=== PATIENT | female | born 1950 | race Caucasian/White ===

== ENCOUNTER 2016-11-10 10:42 | Inpatient (IN) | payer OTHER ==
[~2016-11-10] VITALS: Ht 165.1 cm; Wt 130.5 kg
[2016-11-13] MEDS ORDERED: NAPR500T PO (08:30)
[2016-11-13] MEDS ORDERED: OMEP20TA PO (08:30)
[2016-11-13] MEDS ORDERED: LOSA50TA PO (08:30)
[2016-11-13] MEDS ORDERED: LEXA20TA PO (08:30)
[2016-11-13] MEDS ORDERED: SIMV20TA PO (08:30)
[2016-11-13] MEDS ORDERED: LEVO112T29 PO (08:30)
[2016-11-13] MEDS ORDERED: METF500T PO (08:30)
[2016-11-13] MEDS ORDERED: EXCETAB PO (08:32)
--- NOTE | 2016-11-17 09:57 | MH ---
cc: Jeanne GOODMAN M.D. DATE OF ADMISSION: 11/20/2016 ADMITTING DIAGNOSIS Osteoarthritic degeneration left knee, now being admitted for left total knee arthroplasty. HISTORY OF PRESENT ILLNESS This pleasant 66-year-old female is being admitted today for left total knee arthroplasty due to severe painful osteoarthritic degeneration, left knee. PAST MEDICAL HISTORY 1. Diabetes. 2. Hypertension. 3. Neck and back pain. 4. Thyroid problems. MEDICATIONS Current medications include: 1. Levoxyl. 2. Lexapro. 3. Losartan. 4. Metformin. 5. Simvastatin. 6. Omeprazole. PAST SURGICAL HISTORY 1. Right total knee arthroplasty, 2010. 2. Cholecystectomy. REVIEW OF SYSTEMS Noncontributory. FAMILY HISTORY Noncontributory. SOCIAL HISTORY She does not smoke and does not drink. ALLERGIES She has no known allergies. PHYSICAL EXAMINATION VITAL SIGNS: The patient has a BMI of 43.5. Blood pressure 128/72, pulse 79 and regular, respirations 16, temperature 97.6, pulse oximetry 97% on room air. HEENT: Eyes PERRLA, EOMI. Ears, nose and mouth clear. NECK: Supple. LUNGS: Clear. HEART: Regular rate. ABDOMEN: Soft. Positive bowel sounds. Nontender. EXTREMITIES: The left knee is tender with crepitance on range of motion. Neurovascularly intact to her toes. IMPRESSION The impression at this time is severe painful osteoarthritic degeneration, left knee. PLAN Admission for left total knee arthroplasty today. The patient was given prescriptions for postoperative pain and anticoagulation control in the office. She understands to use Hibiclens scrub and Bactroban preoperatively. She plans on going home with home health care after surgery. MD LUDWIN Swift/ADAM /9:41 AM /9:45 AM
[2016-11-20] MEDS ORDERED: POVIDONE IODINE 5% (ANTISEPSIS KIT) 4 APPLICATIONS EACH NARE PRN (08:00)
[2016-11-20] MEDS ORDERED: ceFAZolin 2 GM PREMIX 50 ML IV SCH (08:00)
[2016-11-20] MEDS: CHLORHEXIDINE GLUCONATE 4% SOLN 120 ML BTL TOPICAL SCH (08:00)
[2016-11-20] MEDS ORDERED: LACTATED RINGER'S 1000 ML IV PRN (08:00)
[2016-11-20] MEDS ORDERED: METOPROLOL TARTRATE 25 MG TAB PO PRN (08:00)
[2016-11-20] MEDS ORDERED: EXPAREL PERI-ARTICULAR INJECTION (TOTAL VOL. 120 ML) P-ARTICULR SCH ×2 (08:00)
[2016-11-20] MEDS ORDERED: VANCOMYCIN 1000 MG/NS 250 ML (for <70 kg) IV SCH ×2 (08:00)
[2016-11-20] MEDS ORDERED: TRANEXAMIC ACID IV SCH ×3 (08:00→13:28)
[2016-11-20] MEDS ORDERED: SODIUM CHLORID 0.9% 500 ML IV PRN (08:00)
[2016-11-20] MEDS ORDERED: CHLORHEXIDINE GLUCONATE 2 % 1 PACK (2 CLOTHS) TOPICAL PRN (08:00)
[2016-11-20] MEDS ORDERED: SODIUM CHLORIDE 0.9% IV SCH ×3 (08:00→13:28)
[2016-11-20] MEDS ORDERED: INSULIN HUMAN REGULAR 1,000 UNITS/10 ML VIAL SQ PRN (08:00)
[2016-11-20 08:16] VITALS: BP 173/85; PULSE 77; RESP 20; TEMP 98.2; O2SAT 97
[2016-11-20] MEDS ORDERED: BUPIVACAINE LIPOSO PF 1.3% INJ 20 ML, BUPIVACAINE PF 0.25% INJ 20 ML in SODIUM CHLORIDE... P-ARTICULR SCH (09:15)
[2016-11-20] MEDS ORDERED: FAMOTIDINE 20 MG/2 ML VIAL ONE ×2 (09:33→10:11)
[2016-11-20] MEDS ORDERED: APREPITANT 40 MG CAP ONE (09:33)
[2016-11-20] MEDS ORDERED: DEXAMETHASONE SOD PHOS 4 MG/ML VIAL ONE (09:51)
[2016-11-20] MEDS ORDERED: MIDAZOLAM HCL 2 MG/2 ML VIAL ONE ×2 (09:51→13:26)
[2016-11-20] MEDS ORDERED: ACETAMINOPHEN 1000 MG/100 ML VIAL IV ONE (10:11)
--- NOTE | 2016-11-20 10:27 | HHI.FF ---
Face to Face Verification Diagnosis: (1) Status post total left knee replacement Physical Therapy Gait training Knee: Total knee, Protocol: Left, Full weight bearing Canvas Knee Splint: When in bed & 2 pillows btw thighs Nursing RN: 3 days/week x 2 weeks Nursing: Dayanna teaching, Dressing changes Dressing Changes: Daily dressing change, 4x4s, Gauze, Paper tape I have seen patient Liasha Kendrick on 11/20/16. My clinical findings support the need for the requested home health care services because: Limited ability to care for self High risk of falls I certify that my clinical findings support that this patient is homebound because: Unsteady gait/balance Jeanne Tracy MD Nov 20, 2016 10:27
[2016-11-20] MEDS ORDERED: CPMMACHINE (10:28)
[2016-11-20] MEDS ORDERED: MISC-163 (10:28)
[2016-11-20] MEDS ORDERED: WALKER WHEELS/F1 MIS (10:29)
[2016-11-20] MEDS ORDERED: Post-op Orders (for Pharmacy) MISC XX ONE (10:30)
[2016-11-20] MEDS ORDERED: TEMAZEPAM 15 MG CAP PO PRN (10:30)
[2016-11-20] MEDS ORDERED: NALOXONE HCL 0.4 MG/ML AMP IV PRN (10:30)
[2016-11-20] MEDS ORDERED: SODIUM CHLORIDE 0.9% FLUSH 5 ML FLUSH IVF PRN (10:30)
[2016-11-20] MEDS ORDERED: MORPHINE SULFATE 30 MG/30 ML PCA IV SCH (10:30)
[2016-11-20] MEDS ORDERED: diphenhydrAMINE HCL 50 MG/ML VIAL IV PRN (10:30)
[2016-11-20] MEDS ORDERED: ONDANSETRON HCL 4 MG/2 ML VIAL IV PUSH ONE (12:00)
[2016-11-20] MEDS ORDERED: PROPOFOL 200 MG/20 ML AMP IV ONE (12:00)
[2016-11-20] MEDS ORDERED: ePHEDrine/NS 25 MG/5 ML SYR IV ONE (12:00)
[2016-11-20] MEDS ORDERED: NEOSTIGMINE 3 MG/3 ML SYR IV ONE (12:00)
[2016-11-20] MEDS ORDERED: LACTATED RINGER'S 1000 ML INJ 1,000 ML IV ONE (12:00)
[2016-11-20] MEDS ORDERED: fentaNYL CITRATE 250 MCG/5 ML AMP ONE (13:27)
[2016-11-20] MEDS ORDERED: *morphine SULFATE 8 MG/ML PERIprocedure ONLY ONE ×2 (13:40→14:13)
[2016-11-20] MEDS: LACTATED RINGER'S 1000 ML INJ 1,000 ML IV SCH ×2 (13:45→22:53)
--- NOTE | 2016-11-20 14:30 | RADRPT ---
EXAM DATE/TIME: 11/20/2016 13:54 [facility] COMPARISON: No previous studies available for comparison. INDICATIONS : Post op left knee replacement MEDICAL HISTORY : None. SURGICAL HISTORY : bilateral knees ENCOUNTER: Initial ACUITY: 1 day PAIN SCORE: Non-responsive. LOCATION: Left knee FINDINGS: The patient is post left knee arthroplasty. Orthopedic hardware is in good position. CONCLUSION: 1. Arthroplasty hardware in good position. Armand Dickerson MD on November 20, 2016 at 14:28 Board Certified Radiologist. This report was verified electronically.
[2016-11-20 15:16] VITALS: BP 115/54; PULSE 60; RESP 18; TEMP 97.2; O2SAT 94
[2016-11-20] MEDS: PCA - TOTAL MG MORPHINE DELIVERED PER SHIFT SCH ×2 (15:48→21:36)
--- NOTE | 2016-11-20 15:51 | PD.CONS ---
HPI Service [facility] Hospitalists Consult Requested By Primary Care Physician Jamaal Castro MD Diagnoses: History of Present Illness Pt is 66 yo admitted for left tka. currently seen in room postop. no cp or sob. some nausea. present. says she is planning to d/c home after admission as she did before. Review of Systems Other left knee pain Past Family Social History Past Medical History right tka cholecystectomy htn hypothyroidism gerd dm 2 depression. hyperlipidemia Reported Medications Reported Meds & Active Scripts Active Reported Excedrin Migraine (Bbgyhlu-Ukfrczmbitiio-Dhhizevl) 250-250-65 Mg Tab 2 Tab PO PRN Naproxen 500 Mg Tab 500 Mg PO DAILY PRN Simvastatin 20 Mg Tab 20 Mg PO DAILY Omeprazole 20 Mg Tab 20 Mg PO DAILY Metformin (Metformin HCl) 500 Mg Tab 500 Mg PO DAILY With a meal Losartan (Losartan Potassium) 50 Mg Tab 50 Mg PO DAILY Lexapro (Escitalopram Oxalate) 20 Mg Tab 20 Mg PO DAILY Levoxyl (Levothyroxine Sodium) 112 Mcg Tab 112 Mcg PO DAILY Allergies: Coded Allergies: No Known Allergies (Verified , 11/20/16) Family History nc Social History no etoh/tob Physical Exam Vital Signs heent neg heart reg lung cta abd s/nt ext no pitting. Vital Signs Date Time Temp Pulse Resp B/P Pulse Ox O2 Delivery O2 Flow Rate FiO2 11/20/16 15:48 17 11/20/16 14:18 15 11/20/16 13:51 15 11/20/16 13:46 15 11/20/16 13:45 15 11/20/16 13:30 68 13 136/60 96 Nasal Cannula 3 11/20/16 13:15 97.4 68 10 156/65 95 Nasal Cannula 3 11/20/16 08:16 98.2 77 20 173/85 97 Laboratory Laboratory Tests Test 11/20/16 08:53 Blood Type O NEGATIVE Antibody Screen NEGATIVE Assessment and Plan Problem List: (1) Status post total left knee replacement Status: Acute Plan: Pt admitted with left tka dvt prophylaxis pain control PT eval inc spirometer plan for hhc/pt resume home bp/dm meds. (2) Diabetes Status: Chronic Plan: ssi home meds (3) Hypertension Status: Chronic Plan: cont home meds (4) Hypothyroid Status: Chronic Plan: home meds Elmer Pierson MD Nov 20, 2016 15:51
[2016-11-20 16:00] VITALS: BP 120/60; PULSE 60; RESP 18; TEMP 97.6; O2SAT 94
[2016-11-20] MEDS ORDERED: DEXTROSE 50% IN WATER 50 ML VIAL(D50) IV PRN (16:00)
[2016-11-20] MEDS ORDERED: GLUCAGON 1 MG/ML VIAL OTHER PRN (16:00)
[2016-11-20 16:16] VITALS: BP 115/54; PULSE 60; RESP 18; TEMP 97.2; O2SAT 94
[2016-11-20] MEDS: INSULIN ASPART SUPPLEMENTAL SCALE SQ SCH ×2 (16:24→21:00)
[2016-11-20 18:40] VITALS: O2SAT 93
[2016-11-20] MEDS ORDERED: CAFFEINE PO PRN (19:30)
[2016-11-20] MEDS ORDERED: ACETAMINOPHEN PO PRN (19:30)
[2016-11-20] MEDS ORDERED: ASPIRIN PO PRN (19:30)
[2016-11-20 20:25] VITALS: BP 134/64; PULSE 71; RESP 18; TEMP 98; O2SAT 97
[2016-11-20] MEDS: SODIUM CHLORIDE 0.9% FLUSH 5 ML FLUSH IVF SCH (21:00)
[2016-11-21] VITALS (8 sets, daily range): BP systolic 105–128; BP diastolic 53–60; PULSE 69–92; RESP 16–19; TEMP 96.4–98.3; O2SAT 94–98
[2016-11-21] MEDS: ONDANSETRON HCL 4 MG/2 ML VIAL IVP PRN ×3 (01:34→23:54)
[2016-11-21] MEDS: PCA - TOTAL MG MORPHINE DELIVERED PER SHIFT SCH (05:48)
[2016-11-21] MEDS: LEVOTHYROXINE SODIUM 112 MCG TAB PO SCH (05:48)
[2016-11-21] MEDS: INSULIN ASPART SUPPLEMENTAL SCALE SQ SCH ×4 (05:52→20:39)
[2016-11-21] MEDS: CHLORHEXIDINE GLUCONATE 4% SOLN 120 ML BTL TOPICAL SCH (07:34)
[2016-11-21] MEDS: SODIUM CHLORIDE 0.9% FLUSH 5 ML FLUSH IVF SCH ×2 (07:34→20:39)
--- NOTE | 2016-11-21 08:07 | PD.ORT.PN ---
Subjective Subjective Remarks pt comfortable today. No complaints. Objective Vitals Vital Signs Date Time Temp Pulse Resp B/P Pulse Ox O2 Delivery O2 Flow Rate FiO2 11/21/16 05:48 19 11/21/16 04:35 97.8 74 17 117/59 98 11/21/16 00:35 96.4 69 17 125/56 98 11/20/16 21:36 19 11/20/16 20:25 98.0 71 18 134/64 97 11/20/16 18:40 93 Nasal Cannula 3.00 11/20/16 16:00 97.6 60 18 120/60 94 11/20/16 15:48 17 11/20/16 15:16 97.2 60 18 115/54 94 11/20/16 15:00 97.5 68 16 115/63 96 Nasal Cannula 2 11/20/16 14:45 67 15 112/60 95 Nasal Cannula 2 11/20/16 14:30 66 15 113/62 95 Nasal Cannula 2 11/20/16 14:18 15 11/20/16 14:15 67 15 118/62 94 Nasal Cannula 2 11/20/16 14:00 66 14 120/68 98 Nasal Cannula 3 11/20/16 13:51 15 11/20/16 13:46 15 11/20/16 13:45 65 14 128/69 97 Nasal Cannula 3 11/20/16 13:45 15 11/20/16 13:30 68 13 136/60 96 Nasal Cannula 3 11/20/16 13:15 97.4 68 10 156/65 95 Nasal Cannula 3 11/20/16 08:16 98.2 77 20 173/85 97 I/O 11/20/16 11/20/16 11/20/16 11/21/16 11/21/16 11/21/16 07:00 15:00 23:00 07:00 15:00 23:00 Intake Total 1600 ml 125 ml 120 ml Output Total 200 ml 550 ml Balance 1400 ml 125 ml -430 ml Intake Oral 125 ml 120 ml IV Total 100 ml Other 1500 ml Output Urine Total 550 ml Estimated Blood Loss 200 ml # Voids 0 0 # Bowel Movements 0 0 Imaging Last 24 hours Impressions Knee X-Ray 11/20/16 1023 Signed Impressions: Service Date/Time: Sunday, November 20, 2016 13:54 - CONCLUSION: 1. Arthroplasty hardware in good position. Armand Dickerson MD Objective Remarks Dressing dry and intact. Block still on. Assessment & Plan Ortho Post Op Day #: 1 Problem List: Assessment and Plan Daily wound care. PT, OOB, CPM, DC WELL TESTER today. Plan on home with HHC on POD #3 Jeanne Tracy MD Nov 21, 2016 08:07
[2016-11-21] MEDS: metFORMIN HCL 500 MG TAB PO SCH (08:12)
[2016-11-21] MEDS: PRAVASTATIN SOD 40 MG TAB PO SCH (08:13)
[2016-11-21] MEDS: ESCITALOPRAM OXALATE 20 MG TAB PO SCH (08:13)
[2016-11-21] MEDS: PANTOPRAZOLE SOD 20 MG DELAYED RELEASE TAB PO SCH (08:13)
[2016-11-21] MEDS: LOSARTAN 50 MG TAB PO SCH (08:13)
[2016-11-21 08:38] LABS: HEMATOCRIT 31.8 % (35.0-46.0)
[2016-11-21 08:48] LABS: REVIEW FLAG FINAL
[2016-11-21] MEDS: ACETAMINOPHEN/HYDROcodone 325 MG/7.5 MG TAB PO PRN ×4 (10:13→23:54)
[2016-11-21] MEDS: LACTATED RINGER'S 1000 ML INJ 1,000 ML IV SCH ×2 (11:23→23:53)
[2016-11-21] MEDS: ENOXAPARIN SODIUM 30 MG/0.3 ML SYRINGE SQ SCH ×2 (12:00→23:51)
[2016-11-21] MEDS: MULTIVITAMINS/MINERALS THERAPEUTIC TAB PO SCH (20:39)
[2016-11-21] MEDS: DOCUSATE SODIUM 100 MG CAP PO SCH (20:39)
[2016-11-22 00:20] VITALS: BP 120/56; PULSE 84; RESP 18; TEMP 98; O2SAT 98
[2016-11-22] MEDS: LEVOTHYROXINE SODIUM 112 MCG TAB PO SCH (06:04)
[2016-11-22] MEDS: ONDANSETRON HCL 4 MG/2 ML VIAL IVP PRN (06:04)
[2016-11-22] MEDS: INSULIN ASPART SUPPLEMENTAL SCALE SQ SCH ×4 (06:05→21:00)
[2016-11-22] MEDS: ACETAMINOPHEN/HYDROcodone 325 MG/7.5 MG TAB PO PRN (06:05)
[2016-11-22 07:09] LABS: HEMATOCRIT 29.8 % (35.0-46.0); REVIEW FLAG FINAL
[2016-11-22 08:00] VITALS: BP 125/55; PULSE 67; RESP 16; TEMP 97.4; O2SAT 99
[2016-11-22] MEDS: CHLORHEXIDINE GLUCONATE 4% SOLN 120 ML BTL TOPICAL SCH (08:00)
--- NOTE | 2016-11-22 08:05 | PD.ORT.PN ---
Subjective Subjective Remarks pt comfortable today but complaining of dizziness. Objective Vitals Vital Signs Date Time Temp Pulse Resp B/P Pulse Ox O2 Delivery O2 Flow Rate FiO2 11/22/16 00:20 98.0 84 18 120/56 98 11/21/16 20:00 97.4 92 19 128/60 94 11/21/16 16:35 94 Nasal Cannula 3.00 11/21/16 16:00 97.7 79 16 114/53 98 11/21/16 12:00 98.3 76 16 113/56 94 11/21/16 09:52 96 Nasal Cannula 3.00 I/O 11/21/16 11/21/16 11/21/16 11/22/16 11/22/16 11/22/16 07:00 15:00 23:00 07:00 15:00 23:00 Intake Total 120 ml 700 ml 480 ml 240 ml Output Total 550 ml 850 ml 450 ml 700 ml Balance -430 ml -150 ml 30 ml -460 ml Intake Oral 120 ml 600 ml 480 ml 240 ml IV Total 100 ml Output Urine Total 550 ml 850 ml 450 ml 700 ml # Bowel Movements 0 0 0 0 Result Diagram: 11/22/16 0609 Imaging Last 24 hours Impressions Knee X-Ray 11/20/16 1023 Signed Impressions: Service Date/Time: Sunday, November 20, 2016 13:54 - CONCLUSION: 1. Arthroplasty hardware in good position. Armand Dickerson MD Objective Remarks Dressing dry and intact. No calf tenderness. Assessment & Plan Ortho Post Op Day #: 2 Problem List: Assessment and Plan Daily wound care. PT, OOB, CPM. Plan on home with HHC on POD #3 Jeanne Tracy MD Nov 22, 2016 08:05
[2016-11-22] MEDS: DOCUSATE SODIUM 100 MG CAP PO SCH ×2 (08:45→20:35)
[2016-11-22] MEDS: LOSARTAN 50 MG TAB PO SCH (08:45)
[2016-11-22] MEDS: MULTIVITAMINS/MINERALS THERAPEUTIC TAB PO SCH ×2 (08:45→20:35)
[2016-11-22] MEDS: metFORMIN HCL 500 MG TAB PO SCH (08:45)
[2016-11-22] MEDS: PRAVASTATIN SOD 40 MG TAB PO SCH (08:45)
[2016-11-22] MEDS: PANTOPRAZOLE SOD 20 MG DELAYED RELEASE TAB PO SCH (08:45)
[2016-11-22] MEDS: ESCITALOPRAM OXALATE 20 MG TAB PO SCH (08:45)
[2016-11-22] MEDS: SODIUM CHLORIDE 0.9% FLUSH 5 ML FLUSH IVF SCH ×2 (08:46→20:35)
[2016-11-22] MEDS ORDERED: BACITRACIN OINT 0.9 GM PKT TOP PRN (10:15)
[2016-11-22 12:00] VITALS: BP 114/59; PULSE 69; RESP 16; TEMP 97.9; O2SAT 96
[2016-11-22] MEDS: ENOXAPARIN SODIUM 30 MG/0.3 ML SYRINGE SQ SCH (12:08)
[2016-11-22] MEDS: LACTATED RINGER'S 1000 ML INJ 1,000 ML IV SCH (12:23)
[2016-11-22 16:00] VITALS: BP 138/62; PULSE 82; RESP 16; TEMP 98.7; O2SAT 92
[2016-11-22] MEDS: ACETAMINOPHEN 325 MG TAB PO PRN (19:27)
[2016-11-22 20:10] VITALS: BP 159/68; PULSE 76; RESP 17; TEMP 97.7; O2SAT 92
[2016-11-23 00:05] VITALS: BP 146/67; PULSE 70; RESP 18; TEMP 96.9; O2SAT 93
[2016-11-23] MEDS: ENOXAPARIN SODIUM 30 MG/0.3 ML SYRINGE SQ SCH ×2 (00:20→10:55)
[2016-11-23] MEDS: LACTATED RINGER'S 1000 ML INJ 1,000 ML IV SCH ×2 (00:53→13:23)
[2016-11-23] MEDS ORDERED: MAGNESIUM HYDROXIDE SUSP 30 ML CUP PO PRN (04:15)
[2016-11-23] MEDS: LEVOTHYROXINE SODIUM 112 MCG TAB PO SCH (06:02)
[2016-11-23] MEDS: ACETAMINOPHEN 325 MG TAB PO PRN ×2 (06:02→12:49)
[2016-11-23] MEDS: INSULIN ASPART SUPPLEMENTAL SCALE SQ SCH ×2 (06:34→10:53)
[2016-11-23 07:56] VITALS: BP 143/62; PULSE 72; RESP 19; TEMP 98; O2SAT 97
[2016-11-23] MEDS: PRAVASTATIN SOD 40 MG TAB PO SCH (08:31)
[2016-11-23] MEDS: LOSARTAN 50 MG TAB PO SCH (08:31)
[2016-11-23] MEDS: metFORMIN HCL 500 MG TAB PO SCH (08:31)
[2016-11-23] MEDS: DOCUSATE SODIUM 100 MG CAP PO SCH (08:32)
[2016-11-23] MEDS: MULTIVITAMINS/MINERALS THERAPEUTIC TAB PO SCH (08:32)
[2016-11-23] MEDS: ESCITALOPRAM OXALATE 20 MG TAB PO SCH (08:32)
[2016-11-23] MEDS: PANTOPRAZOLE SOD 20 MG DELAYED RELEASE TAB PO SCH (08:32)
[2016-11-23] MEDS: SODIUM CHLORIDE 0.9% FLUSH 5 ML FLUSH IVF SCH (08:34)
--- NOTE | 2016-11-23 11:23 | MP ---
cc: Jeanne TRACY M.D. DATE OF SURGERY 11/20/2016 PREOPERATIVE DIAGNOSIS Severe osteoarthritic degeneration left knee with morbid obesity. POSTOPERATIVE DIAGNOSIS Severe osteoarthritic degeneration left knee with morbid obesity. SURGERY PERFORMED Left total knee arthroplasty using the Consensus protocol and cutting jigs sizes were 5 femur, 3 tibia and 2 patella with a 12 mm insert. No drain utilized and two batch of cobalt blue cement. SURGEON Dr. Tracy FISH RECEIVER AARON Neri ANESTHESIA General intubation and block PROCEDURE After successful induction of anesthesia, the patient is placed on the operating room table in the supine position. The knee is prepped and draped in the usual manner. A tourniquet is inflated at the upper thigh and set to 300 mmHg pressure after exsanguination of the lower extremity. A longitudinal incision is made extending from 3 inches proximal to the superior pole of the patella, across the patella in longitudinal fashion, and down past the insertion of the tibial tubercle into the proximal tibia. The incision is carried down through subcutaneous tissue along the medial aspect of the patella and retinaculum, down through the capsule to expose the knee joint. The patella and patellar tendon are freed up enough to allow the patella to be inverted and retracted off the lateral side of the knee joint. The knee joint is left exposed. Small osteophytes are removed. All soft tissue is removed to allow proper position of the femoral and tibial cutting jig guide. The first femoral jig is then inserted along the distal end of the femur after first measuring to decide whether this is a small, medium, or large component. The notch is then drilled and the tibial cutting guide inserted into the femoral cutting guide, along with the ankle brace to allow for proper measurement of the tibial cutting surface that needed to be resected. Pins are inserted into the tibial cutting jig and femoral cutting jig to hold them in place. An oscillating saw is then used to resect the surface of the tibia. The surface of the tibia is then completely removed using sharp and blunt dissection. The anterior and posterior cuts of the femur are then made as well using an oscillating saw through the cutting guide. All guides are then removed and the varus/valgus angulation cutting guide applied to the femur for proper measurement of the proper amount of valgus. The anterior cutting guide for the femur is then inserted at the anterior femoral cuts made. Next, the first block trial is inserted into the femur to allow for proper condyle drill holes to be made which are then made followed by removal of the bone between the condyles using an oscillating saw as well as the bone removed at the most posterior surface of the condyle. After this, this guide is removed and the chamfer cuts made using the chamfer cutting guide from both anterior and posterior. Next, the femoral trial is then inserted, the tibial surface reflected anterior to expose the tibial surface and a tibial stem guide is inserted after first measuring for a standard, standard plus, large, or large plus surface to be used. After the stem is impacted the trial tibial surface is applied followed by the trial meniscal components. After full range of motion is found with the appropriate length meniscal components varying the patella is prepared by resecting the posterior aspect of the patella using an oscillating saw, inserting a trial. The trial is then removed and the cruciate cutting guide applied using the bur to cut the cruciate cuts. After cruciate cuts are made all trials are removed. The wound is irrigated copiously with antibiotic solution and Water-Pik and the actual components inserted into place using Consensus protocol and cutting jigs sizes were 5 femur, 3 tibia and 2 patella with a 12 mm insert. No drains utilized and two batch of cobalt blue cement. After the cement has hardened and the components are found to have full range of motion with no instability, the tourniquet is deflated, no total tourniquet utilized except for cementing, total tourniquet time being 13 minutes at 300 mmHg pressure. The wound again is irrigated copiously with antibiotic solution, meticulous hemostasis achieved. The patient needed an extra 30 minutes of exposure time as she was morbidly obese and had extra layers of extra layers of lipomas material to cut through and the incision had to be larger to expose the wound which took extra time sewing with 2-0 and 3-0 Monocryl suture at the end of the case just to re-sew the incision line which was an extra 4 inches in length due to her morbid obesity status. The deep fascia approximated with #2 running quill, subcutaneous tissue with 2-0, 3-0 and 4-0 Monocryl sutures. Steri-Strips sterile dressing and a knee immobilizer. No drain utilized. Estimated blood loss 200 cc. Sponge suture counts correct. The patient of procedure well and left the operating in satisfactory condition. J. MD LUDWIN Busch/CATY /11:12 AM /11:09 AM
[2016-11-23 11:55] VITALS: BP 154/68; PULSE 78; RESP 19; TEMP 98.8; O2SAT 97
--- NOTE | 2016-11-23 14:44 | PD.ORT.PN ---
Subjective Subjective Remarks pt comfortable today. no complaints. Objective Vitals Vital Signs Date Time Temp Pulse Resp B/P Pulse Ox O2 Delivery O2 Flow Rate FiO2 11/23/16 11:55 98.8 78 19 154/68 97 11/23/16 07:56 98.0 72 19 143/62 97 11/23/16 00:05 96.9 70 18 146/67 93 11/22/16 20:10 97.7 76 17 159/68 92 11/22/16 16:00 98.7 82 16 138/62 92 I/O 11/22/16 11/22/16 11/22/16 11/23/16 11/23/16 11/23/16 07:00 15:00 23:00 07:00 15:00 23:00 Intake Total 480 ml 240 ml 240 ml Output Total 700 ml 100 ml Balance -220 ml 240 ml 240 ml -100 ml Intake Oral 480 ml 240 ml 240 ml Output Urine Total 700 ml 100 ml # Voids 0 3 3 # Bowel Movements 0 0 0 Result Diagram: 11/22/16 0609 Imaging Last 24 hours Impressions Knee X-Ray 11/20/16 1023 Signed Impressions: Service Date/Time: Sunday, November 20, 2016 13:54 - CONCLUSION: 1. Arthroplasty hardware in good position. Armand Dickerson MD Objective Remarks Dressing dry and intact. No calf tenderness. Assessment & Plan Ortho Post Op Day #: 3 Problem List: Assessment and Plan Daily wound care. PT, OOB, CPM. Home today with HHC and PT. Jeanne Tracy MD Nov 23, 2016 14:44
--- NOTE | 2016-11-23 14:46 | HHI.DS ---
Discharge Summary Admission Date Nov 20, 2016 at 07:05 Discharge Date: Nov 23, 2016 Admitting Diagnosis Osteoarthritic degeneration left knee Diagnosis: (1) Status post total left knee replacement Diagnosis: Principal Brief History This is a 66 year old female patient CBC/BMP: 11/22/16 0609 Significant Findings Laboratory Tests Test 11/21/16 11/22/16 08:15 06:09 Hemoglobin 9.7 GM/DL 9.4 GM/DL (11.6-15.3) (11.6-15.3) Hematocrit 31.8 % 29.8 % (35.0-46.0) (35.0-46.0) PE at Discharge Dressing dry and intact. No calf tenderness. Hospital Course Patient underwent a left total knee arthroplasty on day of admission. She received a course of prophylactic IV antibiotics and started on anticoagulation therapy within 23 hours after surgery. She began out of bed tolerating food and fluids well and by mouth pain meds. She continued to improve with physical therapy and was discharged on third postoperative day in good condition with instructions for home healthcare and physical therapy and she has a CPM machine at home to use as well as a walker and bedside commode. She has home pain medicine as well. She also has home anticoagulation medicine. Pt Condition on Discharge: Good Discharge Disposition: Disch w/ Home Health Serv Discharge Instructions Diet Instructions: As Tolerated, No Restrictions Activities You Can Perform: Full Weight Bearing, Shower Only-No Bath Activities to Avoid: Bathing, Driving Jeanne Tracy MD Nov 23, 2016 14:46
== END 2016-11-23 15:12 | disposition home health service (06) | DRG 470 ==
LOC: HSDI 11-20 07:05 → N06A 11-20 15:45
PROVIDERS: ADMIT Surgery; ATTEND Surgery
PROC: 3E0T3CZ (ICD-10-PCS; 2016-11-20)
PROC: 0SRD0J9 Replacement of Left Knee Joint with Synthetic Substitute, Cemented, Open Approach (ICD-10-PCS; principal; 2016-11-20 10:05)
DX: M17.12 Unilateral primary osteoarthritis, left knee (principal); Z68.41 Body mass index [BMI] 40.0-44.9, adult; I10 Essential (primary) hypertension; E66.01 Morbid (severe) obesity due to excess calories; E11.9 Type 2 diabetes mellitus without complications; Z79.84 Long term (current) use of oral hypoglycemic drugs; Z96.651 Presence of right artificial knee joint; M54.2 Cervicalgia; M54.9 Dorsalgia, unspecified; E03.9 Hypothyroidism, unspecified; E78.5 Hyperlipidemia, unspecified; K21.9 Gastro-esophageal reflux disease without esophagitis; R42 Dizziness and giddiness
CPT/HCPCS: 73560; 82948; 85014; 85018; 86850; 86900; 86901; 94150; C1776; C9290; J0131; J0690; J1100; J1650; J1815; J2250; J2270; J2405; J2710; J3010; J7120; J8501; L1830

== ENCOUNTER → 2016-11-13 | Outpatient (CLI) | payer OTHER ==
[~2016-11-13] MED LIST: CPMMACHINE; EXCETAB PO; LEVO112T29 PO; LEVO125T48 PO; LEXA20TA PO; LOSA50TA PO; METF500 PO; METF500T PO; MISC-163; NAPR-576 PO; NAPR500T PO; OMEP20TA PO; OMEP20TA39 PO; SIMV20 PO; SIMV20TA PO; WALKER WHEELS/F1 MIS; ZOCO10TA PO
[2016-11-13 08:30] LABS: AUTOMATED NEUTROPHIL # 4.8 TH/MM3 (1.8-7.7); BASOPHIL % 0.4 % (0.0-2.0); EOSINOPHIL # 0.2 TH/MM3 (0-0.4); EOSINOPHIL % 1.9 % (0.0-4.0); HEMATOCRIT 37.4 % (35.0-46.0); HEMO FLAGS DIFF FINAL; LYMPH % 30.6 % (9.0-44.0); LYMPHOCYTE # 2.4 TH/MM3 (1.0-4.8); MEAN CELL VOLUME 77.8 FL (80.0-100.0); MEAN CORPUSCULAR HEMOGLOBIN 25.8 PG (27.0-34.0); MEAN CORPUSCULAR HGB CONC 33.2 % (32.0-36.0); MONO % 7.1 % (0.0-8.0); PLATELET COUNT 245 TH/MM3 (150-450); RED BLOOD COUNT 4.81 MIL/MM3 (4.00-5.30); RED CELL DISTRIBUTION WIDTH 15.9 % (11.6-17.2)
[2016-11-13 08:41] LABS: APTT (PATIENT) 26.6 SEC (24.3-30.1); PROTHROMBIN TIME - PATIENT 10.7 SEC (9.8-11.6)
[2016-11-13 08:44] LABS: BACTERIA, URINE RARE /hpf; BLOOD, URINE NEG (NEG); GLUCOSE,URINE NEG (NEG); KETONE, URINE NEG (NEG); MUCUS URINE FEW /lpf (OCC); NITRITE,URINE NEG (NEG); SQUAMOUS EPITHELIAL CELL URINE 7 /hpf (0-5); URINE COLOR YELLOW (YELLW/STRAW)
[2016-11-13 08:45] LABS: COMMENT (UR) CULT NOT INDICATED; CULTURE IF INDICATED CULT NOT INDICATED
[2016-11-13 08:53] LABS: ALT (GPT) 31 U/L (10-53); ANION GAP 6 MEQ/L (5-15); AST (GOT) 15 U/L (15-37); BICARBONATE 30.7 MEQ/L (21.0-32.0); BLOOD UREA NITROGEN 15 MG/DL (7-18); CHLORIDE 102 MEQ/L (98-107); GLOMERULAR FILTRATION RATE 83 ML/MIN (>89); GLUCOSE,FASTING 113 MG/DL (74-99); POTASSIUM 4.4 MEQ/L (3.5-5.1); SODIUM (NA) 139 MEQ/L (136-145)
[2016-11-13 08:55] LABS: ALKALINE PHOSPHATASE 120 U/L (45-117); TOTAL BILIRUBIN ADULT 0.4 MG/DL (0.2-1.0)
--- NOTE | 2016-11-14 12:48 | EKG ---
Date Performed: 11/13/2016 Time Performed: 08:25:29 PTAGE: 66 years EKG: Sinus rhythm NORMAL ECG Compared to prior tracing no significant change DOCTOR: Kvng Caballero Interpretating Date/Time 11/14/2016 12:47:21
== END ==
LOC: CPRE 07:53
PROVIDERS: ATTEND Surgery
DX: Z01.810 Encounter for preprocedural cardiovascular examination (principal); Z01.812 Encounter for preprocedural laboratory examination
CPT/HCPCS: 36415; 80053; 81001; 85025; 85610; 85730; 93005